=== PATIENT | male | born 1960 | race African-American/Black ===

== ENCOUNTER 2017-02-16 14:44 | Emergency (ER) | payer SELFPAY ==
[~2017-02-16] VITALS: Ht 180.3 cm; Wt 74.8 kg
[2017-02-16 14:57] VITALS: BP 109/75
[2017-02-16 15:00] VITALS: BP 109/75
--- NOTE | 2017-02-16 18:11 | Emergency Room Report ---
History of Present Illness General Chief Complaint: General Complaint Source: Patient Present Illness HPI 56YOM BIBEMS from [employer] called 911 Patient sitting on ground with "head in his hands." EMS states pinpoint pupils but normal vitals. RR is normal Patient does not want to participate with HPI - just curls up on stretcher and goes to sleep When aroused he reacts angrily that he doesnt want to talk and "why wont you let me sleep." Denies drug use, other medical problems Denies pain Allergies: Coded Allergies: No Known Allergies (Unverified , 02/16/17) Patient History Past Medical History: none, unable to obtain Past Surgical History: none Pertinent Family History: none Social History: Denies: smoking, alcohol use, drug use Immunizations: UTD Reviewed Nursing Documentation: PMH: Agreed, PSxH: Agreed Nursing Documentation-PMH Past Medical History: No Stated History Review of Systems All Other Systems: negative except mentioned in HPI Physical Exam Vital Signs Date Time Temp Pulse Resp B/P (MAP) Pulse Ox O2 Delivery O2 Flow Rate FiO2 02/16/17 14:43 98.1 56 18 109/75 98 Room Air Sp02 EP Interpretation: reviewed, normal General Appearance: normal inspection, well appearing, no apparent distress, alert, GCS 15, non-toxic Head: normocephalic, atraumatic Eyes: bilateral eye PERRL, bilateral eye EOMI ENT: normal ENT inspection, hearing grossly normal, normal voice Neck: normal inspection, full range of motion, supple, no bony tend Respiratory: normal inspection, lungs clear, normal breath sounds, no respiratory distress, no retraction, no wheezing Cardiovascular #1: regular rate, rhythm, no edema Gastrointestinal: normal inspection, normal bowel sounds, non tender, soft, no guarding, no hernia Genitourinary: no CVA tenderness Musculoskeletal: normal inspection, back normal, normal range of motion, Nani' s Sign negative Neurologic: normal inspection, alert, responsive, speech normal Psychiatric: normal inspection, judgement/insight normal, mood/affect normal Skin: normal inspection, normal color, no rash Medical Decision Making Diagnostic Impression: Primary Impression: Encounter for generalized patient complaints Additional Impression: Behavioral change ER Course 56YOM BIBEMS for behavioral change VSS. Afebrile Not sick appearing Not septic Atraumatic ?drug abuse Not intoxicated Ambulating with steady gait - no focal neuro deficits Likely malingering for mcc/place to sleep Walked out of ER Wouldnt sign DC paperwork Last Vital Signs Date Time Temp Pulse Resp B/P (MAP) Pulse Ox O2 Delivery O2 Flow Rate FiO2 02/16/17 14:57 98.1 18 109/75 98 Room Air 02/16/17 14:43 56 Status: improved Disposition: HOME, SELF-CARE Condition: Improved Referrals: NOT CHOSEN IPA/,REFERRING (PCP) Patient Instructions: Medical Screening Exam KATHARINE OHARA M.D. Feb 16, 2017 18:11
== END 2017-02-16 15:00 | disposition home or self-care (01) ==
LOC: EDBD 14:44 → EMR 14:49
DX: S09.8XXA Other specified injuries of head, initial encounter (principal); F91.9 Conduct disorder, unspecified; F60.2 Antisocial personality disorder; F41.9 Anxiety disorder, unspecified
CPT/HCPCS: 99282